=== PATIENT | male | born 1945 | race Caucasian/White ===

== ENCOUNTER → 2016-05-27 | Outpatient (CLI) | payer OTHER ==
[2015-11-26 09:50] VITALS: BP 125/63
[~2016-05-27] MED LIST: ACET325T16 PO; AMIO200T2 PO; ASPI325T11 PO; ATOR40TA59 PO; FURO20TA3 PO; LISI10TA2 PO; METO25TA4 PO; MULT-246 PO; OXYC5CAP3 PO; PANT40TA5 PO; SENN-22 PO
--- NOTE | 2016-05-27 10:53 | KCIC ---
PROCEDURE Two view chest radiograph. HISTORY Wheezing for 3 days, increasing. TECHNIQUE Two-view chest radiograph was obtained. COMPARISON October 21, 2015. FINDINGS The lungs are clear. Multiple calcified granulomas are again noted. The heart is not enlarged and there is no heart failure. Median sternotomy wires are noted. Scoliosis is noted with degenerative changes in the spine. IMPRESSION Stable examination. Electronically signed by: Siva Amato MD (May 27, 2016 10:52:13)
== END | disposition home or self-care (01) ==
LOC: KCIC 09:44
PROVIDERS: ATTEND Physician Assistant
DX: J98.4 Other disorders of lung (principal); R06.2 Wheezing; L92.9 Granulomatous disorder of the skin and subcutaneous tissue, unspecified
CPT/HCPCS: 71020

== ENCOUNTER 2016-06-15 09:11 | Observation (INO) | payer OTHER ==
[~2016-06-15] VITALS: Ht 180.3 cm; Wt 86.2 kg
[2016-06-15] MEDS: IV RINGERS,LACTATED 1000ML 1,000 ML IV SCH ×2 (07:00→12:09)
[~2016-06-15 09:11] MED LIST changes: +HYDROmorphone 2 MG/ML VIAL IV PRN; +LIDOCAINE 1% 1 ML SYRINGE. ID PRN; +LIDOCAINE 2% 100 MG/5 ML SYRINGE. ONE; +ONDANSETRON PF 4 MG/2 ML VIAL. IV PRN; +PROCHLORPERAZINE 10 MG/2 ML VIAL. IV PRN; +PROPOFOL 20 ML IV ONE; +SUCCINYLCHOLINE 200 MG/10 ML VIAL. ONE; +fentaNYL PF VIAL 100 MCG/2 ML VIAL IV PRN; +fentaNYL PF VIAL 100 MCG/2 ML VIAL ONE
[2016-06-15] MEDS ORDERED: VECURONIUM BOLUS 10 MG VIAL. IV ONE (09:44)
[2016-06-15] MEDS ORDERED: 0.9 % SODIUM CHLORIDE 50 ML VIAL. IJ ONE (09:45)
[2016-06-15] MEDS ORDERED: DEXAMETHASONE SOD PHOS 20 MG/5 ML VIAL. ONE (10:15)
[2016-06-15] MEDS ORDERED: DESFLURANE 31 TO 60 MINUTES IH ONE (10:15)
[2016-06-15] MEDS ORDERED: ACETAMINOPHEN INTRAVENOUS 100 ML IV ONE (10:21)
[2016-06-15] MEDS ORDERED: ePHEDrine PF IN SALINE 50 MG/5 ML DISP.SYRIN IV ONE (10:23)
[2016-06-15] MEDS ORDERED: GLYCOPYRROLATE 1 MG/5 ML VIAL. ONE (10:31)
[2016-06-15] MEDS ORDERED: ONDANSETRON PF 4 MG/2 ML VIAL. ONE (10:31)
[2016-06-15] MEDS ORDERED: NEOSTIGMINE METHYLSULFATE 5 MG/5 ML SYRINGE. ONE (10:31)
[2016-06-15] MEDS: fentaNYL PF VIAL 100 MCG/2 ML VIAL IV PRN ×4 (12:05→12:59)
[2016-06-15] MEDS: MORPHINE SULFATE 2 MG/ML DISP.SYRIN. IV PRN ×4 (12:23→14:40)
[2016-06-15] MEDS ORDERED: ONDANSETRON PF 4 MG/2 ML VIAL. IV PRN (12:30)
[2016-06-15] MEDS ORDERED: HYDROcodone/APAP 5/325MG 1 TAB TABLET PO PRN ×2 (12:30)
[2016-06-15] MEDS ORDERED: HYDROmorphone 2 MG/ML VIAL IV PRN (12:30)
[2016-06-15] MEDS ORDERED: oxyCODONE/APAP 5/325 1 TAB TABLET PO PRN ×2 (12:30→15:44)
[2016-06-15] MEDS ORDERED: 0.9 % SODIUM CHLORIDE 10 ML DISP.SYRIN. IV PRN (12:30)
--- NOTE | 2016-06-15 12:38 | PDOC4 ---
Operative Note Operative Note Operative Note: Preoperative Diagnosis: Ventral hernia Postoperative Diagnosis: Same Procedure: Ventral hernia repair with mesh Surgeon: Denilson Anesthesia: Gen. EBL: 15 mL Specimen: None Drains: None Complications: Indication: The patient is a 70-year-old male who underwent prior cardiac surgery. Along the inferior border of his sternal incision appears to have developed a superior abdominal hernia. There is a prominent reducible palpable bulge. I discussed with him details of surgery for hernia repair including the use of mesh. The risks of surgery were discussed which include bleeding, infection, recurrence, pain, mesh reaction, anesthetic risk, potential need for additional surgery or procedure. He understands and would like to proceed. Description: The patient was taken to the operating room and placed supine on the operating table. Gen. anesthesia was performed. The abdomen was prepped with ChloraPrep and draped with sterile towels, sheets, and an Ioban. An incision was made along the inferior aspect of his xiphoid extending inferiorly at the location of the hernia. Cautery dissection was carried down to the subcutaneous tissue. The fascial defect and hernia sac were readily identified and freed up from the surrounding scar tissue. A preperitoneal plane was then developed deep to the fascial defect using a combination of cautery and blunt dissection. The hernia was located at the very superior aspect of the abdomen near its junction with the costal margin. We freed up a space deep to the medial aspect of the ribs and xiphoid for accommodation of the mesh with overlap. An elliptical Ventrio ST mesh patch was then selected for the repair. The mesh was then placed into this newly developed preperitoneal plane which rested deep to the fascia and the costal margins. The mesh was then sutured around its periphery with interrupted 0 Prolene stitches. Upon completion the mesh rested well in the preperitoneal space and provided good coverage in all directions of the hernia defect. Hemostasis was good as well. The attenuated fascia and subcutaneous scar was closed over the mesh with a running 0 PDS suture. The subcutaneous tissue was approximated with a running 3-0 Vicryl. The skin was then closed with a running 4-0 Monocryl suture. Steri-Strips and a sterile dressing were then applied. The patient tolerated the procedure well and was sent to the recovery room in stable condition. At the end of the case all counts were correct. PRO REYES MD June 15, 2016 12:38
[2016-06-15] MEDS ORDERED: oxyCODONE/APAP 5/325 1 TAB TABLET ONE (14:37)
[2016-06-15 16:25] VITALS: BP 133/67
[2016-06-15] MEDS: POTASSIUM CL 20MEQ-0.45% NACL 1,000 ML IV SCH (17:29)
[2016-06-15 19:00] VITALS: BP 147/72
[2016-06-15] MEDS: oxyCODONE/APAP 5/325 1 TAB TABLET PO PRN ×2 (19:11→23:30)
[2016-06-15] MEDS: METOPROLOL TART IMMED RELEASE 25 MG TABLET. PO SCH (20:36)
[2016-06-15] MEDS ORDERED: ATORVASTATIN CALCIUM 40 MG TABLET. PO SCH (21:00)
[2016-06-15 23:00] VITALS: BP 119/73
[2016-06-15] MEDS ORDERED: ZOLPIDEM 5 MG TABLET. PO ONE (23:15)
[2016-06-16] MEDS: POTASSIUM CL 20MEQ-0.45% NACL 1,000 ML IV SCH (02:37)
[2016-06-16 03:00] VITALS: BP 121/66
[2016-06-16] MEDS: oxyCODONE/APAP 5/325 1 TAB TABLET PO PRN ×2 (05:52→09:58)
[2016-06-16 07:00] VITALS: BP 139/72
[2016-06-16] MEDS ORDERED: PANTOPRAZOLE 40 MG TABLET.DR. PO SCH (07:30)
[2016-06-16] MEDS ORDERED: ASPIRIN ENTERIC COATED 325 MG TABLET.DR. PO SCH (08:00)
[2016-06-16] MEDS: METOPROLOL TART IMMED RELEASE 25 MG TABLET. PO SCH (08:09)
[2016-06-16] MEDS ORDERED: LISINOPRIL 10 MG TABLET PO SCH (09:00)
[2016-06-16 11:00] VITALS: BP 138/78
--- NOTE | 2016-06-16 11:52 | PDOC ---
PROGRESS NOTES Subjective Subjective doing well Objective Objective Vital Signs Date Time Temp Pulse Resp B/P (MAP) Pulse Ox O2 Delivery O2 Flow Rate FiO2 06/16/16 11:30 Room Air 06/16/16 11:00 97.7 64 18 138/78 (98) 95 97.7 06/15/16 16:20 2 Intake and Output 06/16/16 07:00 Intake Total 2190 ml Output Total 15 ml Balance 2175 ml Intake Oral 340 ml IV Total 1850 ml Output Estimated Blood Loss 15 ml # Voids 4 Physical Exam Abdomen: Soft (dressing clean) Assessment Assessment POD 1 VHR Plan Plan of Care Discharge Comment Review of Relevant I have reviewed the following items crystal (where applicable) has been applied. Medications Current Medications Ondansetron HCl (Zofran) 4 mg PRN Q6HRS PRN IV NAUSEA/VOMITING; Start 06/15/16 at 07:00; Stop 06/16/16 at 06:59; Status DC Fentanyl Citrate (Fentanyl 2ml Vial) 25 mcg PRN Q5MIN PRN IV MILD PAIN; Start 06/15/16 at 07:00; Stop 06/16/16 at 06:59; Status DC Fentanyl Citrate (Fentanyl 2ml Vial) 50 mcg PRN Q5MIN PRN IV MODERATE PAIN Last administered on 06/15/16 12:59; Start 06/15/16 at 07:00; Stop 06/16/16 at 06: 59; Status DC Morphine Sulfate 1 mg PRN Q10MIN PRN IV SEVERE PAIN Last administered on 14:40; Start 06/15/16 at 07:00; Stop 06/16/16 at 06:59; Status DC Ringer's Solution 1,000 ml @ 30 mls/hr Q24H IV Last administered on 06/15/16 12:09; Start 06/15/16 at 07:00; Stop 06/15/16 at 18:59; Status DC Lidocaine HCl 2 ml PRN 1X PRN ID PRIOR TO IV START; Start 06/15/16 at 07:00; Stop 06/16/16 at 06:59; Status DC Hydromorphone HCl (Dilaudid) 0.5 mg PRN Q10MIN PRN IV SEV PAIN, Second choice; Start 06/15/16 at 07:00; Stop 06/16/16 at 06:59; Status DC Prochlorperazine Edisylate (Compazine) 5 mg PACU PRN PRN IV NAUSEA, MRX1 Last administered on 06/15/16t 12:04; Start 06/15/16 at 07:00; Stop 06/16/16 at 06:59; Status DC Cefazolin Sodium/ Dextrose 50 ml @ 100 mls/hr 1X PREOP PRN IV Prior to Surgery Last administered on 06/15/16 10:17; Start 06/15/16 at 08:00; Stop at 11:23; Status DC Propofol 20 ml @ As Directed STK-MED ONCE IV ; Start 06/15/16 at 08:38; Stop 06/15 at 08:39; Status DC Lidocaine HCl (Lidocaine HCl 2% Abboject) 100 mg STK-MED ONCE .ROUTE ; Start 06/15/16 at 08:38; Stop 06/15/16 at 08:39; Status DC Fentanyl Citrate (Fentanyl 2ml Vial) 100 mcg STK-MED ONCE .ROUTE ; Start at 08:39; Stop 06/15/16 at 08:40; Status DC Succinylcholine Chloride (Anectine) 200 mg STK-MED ONCE .ROUTE ; Start 06/15/16 at 08:39; Stop 06/15/16 at 08:40; Status DC Vecuronium Clemons (Norcuron Bolus) 10 mg STK-MED ONCE IV ; Start 06/15/16 at 09: 44; Stop 06/15/16 at 09:45; Status DC Sodium Chloride (Sodium Chloride) 50 ml STK-MED ONCE IJ ; Start 06/15/16 at 09:45 ; Stop 06/15/16 at 09:46; Status DC Dexamethasone Sodium Phosphate (Decadron) 20 mg STK-MED ONCE .ROUTE ; Start 06/15 at 10:15; Stop 06/15/16 at 10:16; Status DC Desflurane (Suprane) 30 ml STK-MED ONCE IH ; Start 06/15/16 at 10:15; Stop at 10:16; Status DC Acetaminophen 100 ml @ As Directed STK-MED ONCE IV ; Start 06/15/16 at 10:21; Stop 06/15/16 at 10:22; Status DC Ephedrine Sulfate 50 mg STK-MED ONCE IV ; Start 06/15/16 at 10:23; Stop 06/15/16 at 10:24; Status DC Ondansetron HCl (Zofran) 4 mg STK-MED ONCE .ROUTE ; Start 06/15/16 at 10:31; Stop 06/15/16 at 10:32; Status DC Glycopyrrolate (Robinul) 1 mg STK-MED ONCE .ROUTE ; Start 06/15/16 at 10:31; Stop 06/15/16 at 10:32; Status DC Neostigmine Methylsulfate 5 mg STK-MED ONCE .ROUTE ; Start 06/15/16 at 10:31; Stop 06/15/16 at 10:32; Status DC Sodium Chloride (Normal Saline Flush) 3 ml QSHIFT PRN IV AFTER MEDS AND BLOOD DRAWS; Start 06/15/16 at 12:30 Potassium Chloride/Sodium Chloride 1,000 ml @ 70 mls/hr [id number] IV Last administered on 06/15/16 17:29; Start 06/15/16 at 12:19; Stop 06/16/16 at 09:34; Status DC Acetaminophen/ Hydrocodone Bitart (Lortab 5/325) 1 tab PRN Q4HRS PRN PO MILD PAIN; Start 06/15/16 at 12:30; Stop 06/15/16 at 12:30; Status DC Acetaminophen/ Hydrocodone Bitart (Lortab 5/325) 2 tab PRN Q4HRS PRN PO MODERATE PAIN, SEVERE PAIN; Start 06/15/16 at 12:30; Stop 06/15/16 at 12:30; Status DC Hydromorphone HCl (Dilaudid) 0.2 mg PRN Q1HR PRN IV PAIN Last administered on 17:30; Start 06/15/16 at 12:30 Ondansetron HCl (Zofran) 4 mg PRN Q6HRS PRN IV NAUESA, 1ST CHOICE; Start at 12:30 Aspirin (Ecotrin) 325 mg DAILYWBKFT PO Last administered on 06/16/16 08:09; Start 06/16/16 at 08:00 Atorvastatin Calcium (Lipitor) 40 mg QHS PO Last administered on 06/15/16 20:35 ; Start 06/15/16 at 21:00 Lisinopril (Prinivil) 10 mg DAILY PO Last administered on 06/16/16 08:09; Start 06/16/16 at 09:00 Metoprolol Tartrate (Lopressor) 25 mg BID PO Last administered on 06/16/16 08: 09; Start 06/15/16 at 21:00 Pantoprazole Sodium (Protonix) 40 mg DAILYAC PO Last administered on 06/16/16 08:09; Start 06/16/16 at 07:30 Oxycodone/ Acetaminophen (Percocet 5/325) 1-2 PRN Q4HRS PRN PO PAIN Last administered on 06/15/16 14:38; Start 06/15/16 at 12:30; Stop 06/15/16 at 15:44; Status DC Oxycodone/ Acetaminophen (Percocet 5/325) 1 tab PRN Q4HRS PRN PO PAIN; Start at 15:44 Oxycodone/ Acetaminophen (Percocet 5/325) 1 tab STK-MED ONCE .ROUTE ; Start 06/15 at 14:37; Stop 06/15/16 at 15:44; Status DC Oxycodone/ Acetaminophen (Percocet 5/325) 2 tab PRN Q4HRS PRN PO PAIN Last administered on 06/16/16 09:58; Start 06/15/16 at 15:45 Zolpidem Tartrate (Ambien) 5 mg 1X ONCE PO ; Start 06/15/16 at 23:15; Stop at 23:16; Status DC Active Scripts Active Metoprolol Tartrate 25 Mg Tablet 25 Mg PO BID SIG: ONE BY MOUTH TWICE DAILY Atorvastatin Calcium 40 Mg Tablet 40 Mg PO QHS SIG: ONE DAILY AT BEDTIME Aspirin Ec (Aspirin) 325 Mg Tablet. 325 Mg PO DAILYWBKFT SIG: one daily Reported Pantoprazole Sodium 40 Mg Tablet. 1 Tab PO DAILY Lisinopril 10 Mg Tablet 10 Mg PO DAILY Multi-Vitamin Daily (Multivitamin) 1 Each Tablet 1 Each PO DAILY Oxycodone Hcl 5 Mg Capsule 1 Cap PO Q4-6HRS PRN Vitals/I & O Vital Sign - Last 24 Hours 06/15/16 06/15/16 06/15/1617 11:57 12:05 12:12 12:12 Temp 97.0 97.0 Pulse 48 49 Resp 20 20 20 B/P (MAP) 103/64 119/60 Pulse Ox 99 99 100 O2 Delivery Simple Mask Simple Mask Mask Simple Mask O2 Flow Rate 10 10.0 10 10 06/15/16 06/15/16 06/15/16 06/15/16 12:19 12:23 12:27 12:33 Pulse 48 Resp 20 20 20 22 B/P (MAP) 123/65 Pulse Ox 99 99 100 100 O2 Delivery Simple Mask Simple Mask Simple Mask Simple Mask O2 Flow Rate 10.0 10.0 10 10.0 06/15/06/15/16 06/15/16 06/15/16 12:34 12:42 12:57 12:59 Pulse 47 48 Resp 20 20 20 20 B/P (MAP) 121/57 Pulse Ox 99 92 93 93 O2 Delivery Simple Mask Room Air Room Air O2 Flow Rate 10.0 06/15/16 06/15/16 06/15/16 06/15/16 13:12 13:21 13:27 13:57 Temp 97.0 97.0 Pulse 51 52 71 Resp 20 20 20 B/P (MAP) 123/56 125/61 127/69 Pulse Ox 95 95 97 O2 Delivery Nasal Cannula Nasal Cannula Nasal Cannula Nasal Cannula O2 Flow Rate 2 2 2 2 06/15/16 06/15/16 06/15/16 06/15/16 14:27 14:29 14:38 14:40 Pulse 71 Resp 20 20 20 20 B/P (MAP) 134/88 Pulse Ox 96 96 97 95 O2 Delivery Nasal Cannula Nasal Cannula Nasal Cannula Nasal Cannula O2 Flow Rate 2 2.0 2.0 2.0 06/15/16 06/15/16//06/15/16 14:57 15:27 15:57 16:20 Temp 97.0 97.0 97.0 97.0 97.0 97.0 Pulse 62 61 62 54 Resp 20 20 20 20 B/P (MAP) 134/87 107/63 105/67 105/54 Pulse Ox 95 96 95 95 O2 Delivery Nasal Cannula Nasal Cannula Nasal Cannula Nasal Cannula O2 Flow Rate 2 2 2 2 06/15/16 06/15/16 06/15/16 06/15/16 16:25 16:30 17:30 18:00 Temp 97.7 97.7 Pulse 55 Resp 20 B/P (MAP) 133/67 (89) Pulse Ox 95 O2 Delivery Room Air Room Air Room Air Room Air 06/15/16 06/15/16 06/15/16 06/15/16 19:00 19:11 20:00 20:36 Temp 97.7 97.7 Pulse 70 70 Resp 18 B/P (MAP) 147/72 (97) 147/72 Pulse Ox 93 O2 Delivery Room Air Room Air Room Air 06/15/16 06/15/16 06/16/16 06/16/16 23:00 23:30 03:00 05:52 Temp 98.2 98.2 98.2 98.2 Pulse 80 68 Resp 18 20 B/P (MAP) 119/73 (88) 121/66 (84) Pulse Ox 93 95 O2 Delivery Room Air Room Air Room Air Room Air 06/16/16 06/16/16 06/16/16 06/16/16 07:00 07:30 08:09 08:09 Temp 97.7 97.7 Pulse 65 65 65 Resp 18 B/P (MAP) 139/72 (94) 139/72 139/72 Pulse Ox 91 O2 Delivery Room Air Room Air 06/16/16 06/16/16 06/16/16 09:58 11:00 11:30 Temp 97.7 97.7 Pulse 64 Resp 18 B/P (MAP) 138/78 (98) Pulse Ox 95 O2 Delivery Room Air Room Air Room Air Intake and Output 06/15/16 06/15/16 06/16/16 15:00 23:00 07:00 Intake Total 1290 ml 900 ml 0 ml Output Total 15 ml Balance 1275 ml 900 ml 0 ml PRO REYES MD June 16, 2016 11:52
--- NOTE | 2016-06-16 11:54 | DISCH ---
DISCHARGE INSTRUCTIONS Condition on Discharge Condition on Discharge: Stable Activity After Discharge Activity Instructions for Disc: Other, see below (no lifting over 20 lbs X 6 weeks) Driving Instructions after Dis: Other, see below (no driving while taking pain meds) Diet after Discharge Diet after Discharge: Regular Follow-Up Follow up with: Dr Reyes in 2 weeks, call for appt [phone] PRO REYES MD June 16, 2016 11:54
--- NOTE | 2016-06-16 11:56 | PDOC3 ---
Discharge Summary Visit Information Date of Admission: June 15, 2016 Date of Discharge: June 16, 2016 Final Diagnosis Ventral hernia Brief Hospital Course Allergies Allergies Coded Allergies Type Severity Reaction Last Updated Verified No Known Drug Allergies 06/15/16 No Vital Signs Vital Signs Date Time Temp Pulse Resp B/P (MAP) Pulse Ox O2 Delivery O2 Flow Rate FiO2 06/16/16 11:30 Room Air 06/16/16 11:00 97.7 64 18 138/78 (98) 95 97.7 06/15/16 16:20 2 Brief Hospital Course Mr. Callahan is a 70 old male who presented with a ventral hernia. He underwent surgical repair and his hospital course was uneventful. He is to be discharged on POD 1. Discharge Information Follow Up: Weeks (2 weeks) Disposition/Orders: D/C to Home Scheduled Aspirin (Aspirin Ec), 325 MG PO DAILYWBKFT Atorvastatin Calcium (Atorvastatin Calcium), 40 MG PO QHS Lisinopril (Lisinopril), 10 MG PO DAILY, (Reported) Metoprolol Tartrate (Metoprolol Tartrate), 25 MG PO BID Multivitamin (Multi-Vitamin Daily), 1 EACH PO DAILY, (Reported) Pantoprazole Sodium (Pantoprazole Sodium), 1 TAB PO DAILY, (Reported) Scheduled PRN Oxycodone Hcl (Oxycodone Hcl), 1 CAP PO Q4-6HRS PRN for PAIN, (Reported) PRO REYES MD June 16, 2016 11:56
[2016-06-16] MEDS ORDERED: OXYC-323 PO (12:13)
== END 2016-06-16 12:45 | disposition home or self-care (01) ==
LOC: SURG 09:11 → 4 NORTH 12:19
PROVIDERS: ADMIT Surgery; ATTEND Surgery
PROC: 0WQF0ZZ Repair Abdominal Wall, Open Approach (ICD-10-PCS; principal; 2016-06-15 10:30)
DX: K43.9 Ventral hernia without obstruction or gangrene (principal)
CPT/HCPCS: 49560; 96374; C1781; G0378; G0379; J0131; J0330; J0780; J1100; J1170; J2270; J2405; J2704; J2710; J3010; J3490

== ENCOUNTER → 2017-10-13 | Outpatient (CLI) | payer SELFPAY ==
[~2017-10-13] MED LIST changes: -AMIO200T2 PO; +AMIO200T4 PO; +GADOBUTROL 7.5 MMOL/7.5 ML VIAL IV ONE; -HYDROmorphone 2 MG/ML VIAL IV PRN; -LIDOCAINE 1% 1 ML SYRINGE. ID PRN; -LIDOCAINE 2% 100 MG/5 ML SYRINGE. ONE; -ONDANSETRON PF 4 MG/2 ML VIAL. IV PRN; +OXYC-323 PO; +OXYC5CAP PO; -OXYC5CAP3 PO; -PROCHLORPERAZINE 10 MG/2 ML VIAL. IV PRN; -PROPOFOL 20 ML IV ONE; -SUCCINYLCHOLINE 200 MG/10 ML VIAL. ONE; -fentaNYL PF VIAL 100 MCG/2 ML VIAL IV PRN; -fentaNYL PF VIAL 100 MCG/2 ML VIAL ONE
--- NOTE | 2017-10-13 09:20 | RAD ---
MRI Brain with and without contrast History: Chronic worsening headaches starting in the right frontal region Technique: Multiplanar, multi sequential pre and postcontrast MR imaging was performed of the brain. Contrast: 7.5 cc Gadavist Comparison: None Findings: There is no evidence of recent infarct or cytotoxic edema. There are ventricular size is proportionate to the sulcal spaces. There is mild generalized supratentorial involutional change.There is no significant midline shift, intraaxial mass effect, or focal abnormal extra-axial fluid collection. There is minimal T2 and FLAIR hyperintense signal of the supratentorial white matter bilaterally. There is no significant hemosiderin deposition of the brain parenchyma. There is no nodular parenchymal or leptomeningeal enhancement. There is preservation of the major intracranial flow-voids at the skull base. The cerebellar tonsils are normal in location. There is no significant abnormality of the pineal gland or pituitary gland. Paranasal sinuses are mostly aerated other than negligible patchy ethmoid air cell mucosal thickening. The mastoid air cells are aerated. There is preserved marrow signal of the clivus. Non expansile focus of signal change of the left parietal calvarium may be due to hemangioma. Impression: 1. There is minimal T2 and FLAIR hyperintense signal abnormality of the supratentorial white matter, nonspecific findings more commonly due to chronic microvascular ischemic disease in a patient this age although white matter changes can be seen in patients with migraine headaches. There is no abnormal intracranial enhancement or evidence of recent infarct. Electronically signed by: Mike Singer MD (10/13/2017 9:16 AM) [id number]
== END | disposition home or self-care (01) ==
LOC: MRI 07:56
PROVIDERS: ATTEND Family Medicine
DX: R51 Headache (principal); I10 Essential (primary) hypertension; E78.00 Pure hypercholesterolemia, unspecified; I25.10 Atherosclerotic heart disease of native coronary artery without angina pectoris; Z87.11 Personal history of peptic ulcer disease; Z87.891 Personal history of nicotine dependence; Z95.1 Presence of aortocoronary bypass graft; Z82.49 Family history of ischemic heart disease and other diseases of the circulatory system
CPT/HCPCS: 70553; A9585

== ENCOUNTER → 2018-02-14 | Outpatient (CLI) | payer BC ==
[~2018-02-14] MED LIST changes: -GADOBUTROL 7.5 MMOL/7.5 ML VIAL IV ONE; -OXYC-323 PO; +OXYC1TAB15 PO
--- NOTE | 2018-02-14 11:23 | RAD ---
MRA Brain History: Worsening right-sided headaches Technique: 3-D [id number] MR angiography was performed of the brain. Comparison: October 13, 2017 MRI brain exam, no previous MRA exam available Findings: Determination of any degree of stenosis is based on NASCET criteria. There is some motion degradation. Region of PICAs was not included. Both distal intradural vertebral arteries constitute the basilar artery. There is visualization of right AICA, not seen on the left on this motion degraded exam. There is visualization of bilateral superior cerebellar arteries. There are patent posterior communicating arteries bilaterally. There is visualization of the internal carotid arteries bilaterally at the skull base. There is visualization of the anterior, middle, and posterior cerebral arteries bilaterally. There is probable small patent anterior communicating artery supplying duplicated A2 and A3 segments. No significant intracranial stenosis or aneurysm is identified. Impression: 1. No significant intracranial stenosis or aneurysm is identified. Electronically signed by: Mike Singer MD (02/14/2018 11:19 AM) [id number]
== END | disposition home or self-care (01) ==
LOC: MRI 09:41
PROVIDERS: ATTEND Family Medicine
DX: R51 Headache (principal)
CPT/HCPCS: 70544

== ENCOUNTER → 2018-07-21 | Day surgery (SDC) | payer BC ==
[~2018-07-21] MED LIST changes: +HYDROmorphone 2 MG/ML VIAL IV PRN; +IV RINGERS,LACTATED 1000ML 1,000 ML IV SCH; +LIDOCAINE 1% PF 2 ML VIAL. ID PRN; +MORPHINE SULFATE 2 MG/ML VIAL. IV PRN; +ONDANSETRON PF 4 MG/2 ML VIAL. IV PRN; -PANT40TA5 PO; +PANT40TA77 PO; +PROCHLORPERAZINE 10 MG/2 ML VIAL. IV PRN; +PROPOFOL 20 ML IV ONE; +fentaNYL PF VIAL 100 MCG/2 ML VIAL IV PRN
[2018-07-21 14:32] VITALS: BP 127/70
--- NOTE | 2018-07-21 19:44 | CONS ---
DATE OF CONSULTATION: REFERRING PHYSICIAN: Dr. Favio Harrison. REASON FOR CONSULTATION: Melena. HISTORY OF PRESENT ILLNESS: A 72-year-old male with past medical history significant for heart disease, hypertension, hyperlipidemia, history of triple bypass surgery as well as GERD is seen for interval colonoscopy. He states his bowels have been somewhat soft recently, some dark stools with straining, occasional bright red blood, but no change in weight or appetite. Does take pantoprazole for his reflux. An upper scope in the past have been unrevealing for additional pathology. With the continued bleeding he is here today. PAST MEDICAL HISTORY: Organic heart disease, hypertension, hyperlipidemia, status post triple bypass, GERD. ALLERGIES: None. MEDICATIONS: Include aspirin, atorvastatin, lisinopril, metoprolol, multivitamin, and pantoprazole. SOCIAL HISTORY: Nonsmoker, nondrinker. FAMILY HISTORY: Noncontributory. REVIEW OF SYSTEMS: Per records. PAST SURGICAL HISTORY: Status post CABG. PHYSICAL EXAMINATION: GENERAL: Well-nourished, well-developed male, no acute distress. VITAL SIGNS: Temperature 97.5, pulse 58, respirations 20. HEENT: Normocephalic and atraumatic head. Pupils and extraocular muscles are not tested. Sclerae anicteric. NECK: Supple. LUNGS: Clear. CARDIOVASCULAR: Reveals an S1, S2 without S3, S4 or appreciable murmur. Well-healed midline sternal incision. ABDOMEN: Soft abdomen, normal bowel sounds without appreciable hepatosplenomegaly. EXTREMITIES: Reveals no cyanosis, clubbing or edema. IMPRESSION AND PLAN: Melena with a change in bowel habits, etiology to determine polyps, hemorrhoids, AVMs, ischemic colitis or colon cancer in the differential. Recommend colonoscopy. Risks and benefits of the procedure including the risk of perforation discussed with the patient who is willing to proceed at this time. PRO MELENDEZ MD DR: ELICEO/marva JOB#: [id number] / [id number]
--- NOTE | 2018-07-22 16:06 | PATHOLOGY ---
[facility] Accession Number: [id number] . 01 Material submitted: . hepatic flexure - HEPAITC FLEXURE POLYP . 01 Clinical history: . Blood in stools . 02 Diagnosis: Colon biopsy, hepatic flexure polyp: - Tubular adenoma. LBQ/07/22/2018 . 02 Comment: Sections of the hepatic flexure colon biopsy reveal a tubular adenoma showing focal acute and chronic inflammation with increased eosinophils. There is no high grade dysplasia or evidence of malignancy. (JPM/db; 07/22/2018) . 02 Electronically signed: . Donovan Martinez MD, Pathologist NPI- [id number] . 01 Gross description: . Received in formalin labeled "Callahan, Justin, hepatic flexure polyp," is a 0.8 x 0.5 x 0.5 cm polypoid piece of hinds soft tissue. The margin is inked and the tissue is sectioned perpendicular to the margin and submitted in its entirely in cassette A1. (TSD; 07/21/2018) TOB/TOB . 02 Pathologist provided ICD-10: D12.3 . 02 CPT . 201334 Specimen Comment: A courtesy copy of this report has been sent to Specimen Comment: [phone], . Specimen Comment: Report sent to / DR ROBERTO Performed at: 01 [facility] [address], [place] [id number] MD Russell Moyer MD Phone: [phone] Performed at: 02 [facility] [address], [place] [id number] MD Donovan Martinez MD Phone: [phone]
== END ==
LOC: ENDOS 12:44
PROVIDERS: ATTEND Internal Medicine Gastroenterology
DX: D12.3 Benign neoplasm of transverse colon (principal); K57.30 Diverticulosis of large intestine without perforation or abscess without bleeding; K64.0 First degree hemorrhoids; I10 Essential (primary) hypertension; E78.5 Hyperlipidemia, unspecified; K21.9 Gastro-esophageal reflux disease without esophagitis; Z95.1 Presence of aortocoronary bypass graft
CPT/HCPCS: 45385; 88305; J2704; 45380

== ENCOUNTER → 2020-04-30 | Outpatient (CLI) | payer BC ==
[2018-07-21 14:32] VITALS: BP 127/70
[~2020-04-30] MED LIST changes: +ACET-2061 PO; -ACET325T16 PO; -AMIO200T4 PO; +AMIO200T6 PO; -HYDROmorphone 2 MG/ML VIAL IV PRN; -IV RINGERS,LACTATED 1000ML 1,000 ML IV SCH; -LIDOCAINE 1% PF 2 ML VIAL. ID PRN; +LISI10TA16 PO; -LISI10TA2 PO; -MORPHINE SULFATE 2 MG/ML VIAL. IV PRN; -ONDANSETRON PF 4 MG/2 ML VIAL. IV PRN; -PROCHLORPERAZINE 10 MG/2 ML VIAL. IV PRN; -PROPOFOL 20 ML IV ONE; -fentaNYL PF VIAL 100 MCG/2 ML VIAL IV PRN
--- NOTE | 2020-04-30 19:09 | CARD ---
MR#: [id number] Date of Study: 04/30/2020 Ordering Physician: EVA CHEN, Referring Physician: EVA CHEN, Tech: Yolanda Devine [facility] APPROVED REPORT EXAM: Two-dimensional and M-mode echocardiogram with Doppler and color Doppler. Other Information Quality : Fair INDICATION Cardiac Disease: CAD Surgery/Intervention CABG: Date: 2015 2D DIMENSIONS Left Atrium(2D)2.7 (1.6-4.0cm)IVSd1.0 (0.7-1.1cm) Aortic Root(2D)3.5 (2.0-3.7cm)LVDd4.4 (3.9-5.9cm) LVOT Diameter2.1 (1.8-2.4cm)PWd1.0 (0.7-1.1cm) LVDs3.1 (2.5-4.0cm)FS (%) 30.6 % SV51.2 mlLVEF(%)58.3 (>50%) Aortic Valve AoV Peak Segun.118.9cm/sAoV VTI25.5cm AO Peak GR.5.7mmHgLVOT VTI 28.21cm AO Mean GR.3mmHgAVA (VTI)3.80cm2 Mitral Valve MV E Auwpsskf07.6cm/sMV DECEL [id number] MV A Tiptzyfq77.1cm/sE/A Ratio1.2 TDI Lateral E' P. V11.01cm/sMedial E' P. V7.47cm/s E/Lateral E'7.4E/Medial E'10.9 Tricuspid Valve TR P. Yxgocdey455kw/sRAP MNCHANLB7mjUd TR Peak Gr.71nbZeCDAW16tlCu Pulmonary Vein S1 Mtikbdnm11.6cm/sS2 Rzxcnxzl76.18cm/s D2 Apwclube12.2cm/s LEFT VENTRICLE The left ventricle is normal size. There is normal left ventricular wall thickness. The left ventricu lar systolic function is normal. The Ejection Fraction is 60-65%. Septal motion consistent with post- operative state. Transmitral Doppler flow pattern is Grade I-abnormal relaxation pattern. RIGHT VENTRICLE The right ventricle is normal size. The right ventricular systolic function is normal. ATRIA The left atrium size is normal. The right atrium size is normal. The interatrial septum is intact wit h no evidence for an atrial septal defect or patent foramen ovale as noted on 2-D or Doppler imaging. AORTIC VALVE The aortic valve is calcified but opens well. Doppler and Color Flow revealed no significant aortic r egurgitation. There is no significant aortic valvular stenosis. MITRAL VALVE The mitral valve is calcified but opens well. Mitral annular calcification is mild. There is no evide nce of mitral valve prolapse. There is no mitral valve stenosis. Doppler and Color-flow revealed trac e mitral regurgitation. TRICUSPID VALVE The tricuspid valve is normal in structure and function. Doppler and Color Flow revealed trace tricus pid regurgitation. There is mild pulmonary hypertension. The PA pressure was estimated at 37 mmHg. Th ere is no tricuspid valve stenosis. PULMONIC VALVE The pulmonic valve is not well visualized. Doppler and Color Flow revealed mild pulmonic valvular reg urgitation. There is no pulmonic valvular stenosis. GREAT VESSELS The aortic root is normal in size. The ascending aorta is not well seen. The IVC is normal in size an d collapses >50% with inspiration. PERICARDIAL EFFUSION There is no evidence of significant pericardial effusion. Critical Notification Critical Value: No <Conclusion> The left ventricular systolic function is normal. The Ejection Fraction is 60-65%. Transmitral Doppler flow pattern is Grade I-abnormal relaxation pattern. Trace mitral regurgitation. Trace tricuspid regurgitation. The PA pressure was estimated at 37 mmHg. There is no evidence of significant pericardial effusion. Signed by : Marino Kauffman, Electronically Approved : 04/30/2020 19:09:13
== END ==
LOC: ECHO 13:42
PROVIDERS: ATTEND Internal Medicine Cardiovascular Disease
DX: I08.8 Other rheumatic multiple valve diseases (principal); I27.20 Pulmonary hypertension, unspecified; Z95.1 Presence of aortocoronary bypass graft
CPT/HCPCS: 93306

== ENCOUNTER → 2020-05-20 | Outpatient (CLI) | payer BC ==
[2018-07-21 14:32] VITALS: BP 127/70
--- NOTE | 2020-05-20 13:53 | KCIC ---
XR SHOULDER_RIGHT 2+ VIEWS DATE: 05/20/2020 10:50 AM INDICATION: Reason: Shoulder pain 3-4 months. Worse last 2 days. / Spl. Instructions: / History: COMPARISON: None. FINDINGS: Bones: There is no evidence of acute fracture or dislocation. Joints: Moderate degenerative changes of the acromioclavicular and glenohumeral joints. The acromioh umeral distance is not narrowed. Miscellaneous: No abnormal soft tissue calcifications in the shoulder. IMPRESSION: Moderate degenerative changes of the acromioclavicular and glenohumeral joints. Electronically signed by: Mike Brown MD (05/20/2020 1:51 PM) [id number]
== END ==
LOC: KCIC 10:46
PROVIDERS: ATTEND Family Medicine
DX: M19.011 Primary osteoarthritis, right shoulder (principal)
CPT/HCPCS: 73030

== ENCOUNTER → 2020-11-26 | Outpatient (CLI) | payer BC ==
[2018-07-21 14:32] VITALS: BP 127/70
--- NOTE | 2020-11-27 17:08 | RAD ---
MR#: [id number] Date of Study: 11/26/2020 Ordering Physician: EVA CHUN, Referring Physician: KRISHNA GOMEZ Tech: RT Bhavin (R) (N) APPROVED REPORT Test Type: Exercise Stress Nurse/Tech: Ashley Tapia RN Test Indications: Shortness of air, CAD Cardiac History: Hypertension,CABG x4 (2016) Medications: See Electronic Medical Record Medical History: See Electronic Medical Record Resting ECG: SB Resting Heart Rate: 49 bpm Resting Blood Pressure: 156/70mmHg Pretest Chest Pain: No chest pain Nurse/Tech Notes S1,S2 and lungs clear to auscultation. Consent: The procedure was explained to the patient in lay terms. Informed consent was witnessed. Ulises eout was entered into [employer]. History and Stress Test performed by RT Bhavin (R) (N) Stress Symptoms Dyspnea,Fatigue POST EXERCISE Reason for Termination: Reached target heart rate, Dyspnea, Fatigue Target HR: Yes Max HR: 138 bpm 96% of Maximum Predicted HR: 143 bpm Exercise duration: 5:21 min:sec, 2 Stage Exercise capacity: 7.0METs Max Blood Pressure: 161/62mmHg Blood Pressure response to exercise: Normal blood pressure response during stress. Heart Rate response to exercise: WNL Chest Pain: No. Arrhythmia: No. ST Change: No. INTERPRETATION Stress EKG Conclusion: The resting EKG shows a sinus rhythm rate of [address] segmen t changes. The stress EKG shows no significant changes from baseline. No EKG evidence of stress-induced ischemia. Imaging Protocol IMAGE PROTOCOL: Rest Tc-99m/stress Tc-99m 1 day Rest: Stress: Viability: Radiopharm.Tc99m [id number] Sestamibi Dose10.1mCi 30mCi Duration 15min. 10min. Img Date 11/26/2020 11/26/2020 Inj-Img [id number]. 60min. Rest Admin Site:IV - Right AntecubitalAdministrator:VINEET Coto, ARRT (R)(N) Stress Admin Site: IV - Right AntecubitalAdministrator: Anisa Catherine, NMTCB, ARRT (R)(N) STRESS DATA End Diast. Vol.133.0mlAv. Heart Rate62.0bpm End Syst. Vol.21.0mlCO Index BSA0.0L/min Myocardial Jiar640.0gEject. Kexkdugn09.0% Stress Rates Pk. Fill Rate3.37EDV/secLVtime Pk. Fill 164.50msec Pk. Empty Rate4.01ESV/secLVtime Pk. Izuzg661.06msec 02/10 Pk. Fill1.86EDV/sec Stress Scores Regional WT0.00Summed WT0.00 Regional WM0.00Summed WM0.00 LV Perfusion The stress scans showed mild apical thinning. The rest scans showed mild apical thinning. Nuclear imaging shows no reversible ischemia or infarct. Wall Motion Left ventricular systolic function is normal with an ejection fraction of greater than 70%. LV Perf. Quant 17 Seg. SSS4.00 17 Seg. SRS1.00 17 Seg. SDS3.00 Stress Defect Extent (% LAD)0.00Rest Defect Extent (% LAD)0.00Rev. Defect Extent (% LAD)0.00 Stress Defect Extent (% LCX) 40.00Rest Defect Extent (% LCX)0.00Rev. Defect Extent (% LCX)21.30 Stress Defect Extent (% RCA)0.00Rest Defect Extent (% RCA)0.00Rev. Defect Extent (% RCA)0.00 Stress Defect Extent (% MOMO)8.70Rest Defect Extent (% MOMO)0.00Rev. Defect Extent (% MOMO)3.70 Conclusion 1. Good exercise tolerance with the patient walking for 5 minutes and 21 seconds on a Maximiliano protocol. 2. No EKG evidence of stress-induced ischemia. 3. Nuclear imaging shows no reversible ischemia or infarct. 4. Normal left ventricular systolic function with an ejection fraction of greater than 70%. 5. Low risk treadmill nuclear stress test. Signed by : Eva Chun MD Electronically Approved : 11/27/2020 17:07:31
== END ==
LOC: NM 08:07
PROVIDERS: ATTEND Internal Medicine Cardiovascular Disease
DX: Z95.1 Presence of aortocoronary bypass graft (principal); R06.00 Dyspnea, unspecified; R53.83 Other fatigue
CPT/HCPCS: 78452; 93017; A9500